=== PATIENT | female | born 1950 | race Caucasian/White ===

== ENCOUNTER 2018-03-31 09:56 | Outpatient (CLI) | payer BC, OTHER | END 2018-03-31 10:07 | disposition home or self-care (01) | LOC: LAB 09:56 | DX: D68.8 Other specified coagulation defects (principal); E03.8 Other specified hypothyroidism; N39.0 Urinary tract infection, site not specified; N95.0 Postmenopausal bleeding; C54.1 Malignant neoplasm of endometrium; D25.9 Leiomyoma of uterus, unspecified; N20.0 Calculus of kidney; Z51.81 Encounter for therapeutic drug level monitoring ==

== ENCOUNTER 2018-03-31 13:39 | Outpatient (CLI) | payer BC, OTHER | END 2018-03-31 13:52 | disposition home or self-care (01) | LOC: MRI 13:39 | DX: N95.0 Postmenopausal bleeding (principal); D25.9 Leiomyoma of uterus, unspecified | CPT/HCPCS: 72197 ==